=== PATIENT | male | born 1990 | race Caucasian/White ===

== ENCOUNTER 2021-03-26 20:17 | Emergency (ER) | payer OTHER ==
[2021-03-26] MEDS ORDERED: Sodium Chloride 0.9% 1,000 ML IV ONE ×2 (21:16→21:17)
--- NOTE | 2021-03-26 22:00 | EDM.PDOC ---
ED HPI GENERAL MEDICAL PROBLEM - General Chief Complaint: General Stated Complaint: POSSIBLE HEAT EX. 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 and no AC, temp is 10 degrees above ambient temp even with windows open has been trying to drink fluids, says he has not been able to keep up was weak and sluggish last night, felt the same this AM unable to eat or drink at [employer] [facility], denies nausea however did feel quite a bit better after 1/2 liter NS, said he could eat or drink some here in ED and would eat and drink more at home here with sig other had 2 beers 2d ago Bilateral Leg Pain Score (Numeric/FACES): 6 - Related Data Allergies Allergy/AdvReac Type Severity Reaction Status Date / Time No Known Allergies Allergy Verified 03/26/21 20:38 Past Medical History HEENT History: Reports: None Cardiovascular History: Reports: None Respiratory History: Reports: None Gastrointestinal History: Reports: None Genitourinary History: Reports: None Musculoskeletal History: Reports: None Neurological History: Reports: None Psychiatric History: Reports: None Endocrine/Metabolic History: Reports: None Hematologic History: Reports: None Immunologic History: Reports: None Oncologic (Cancer) History: Reports: None Dermatologic History: Reports: None - Infectious Disease History Infectious Disease History: Reports: None - Past Surgical History Head Surgeries/Procedures: Reports: None HEENT Surgical History: Reports: None Cardiovascular Surgical History: Reports: None Respiratory Surgical History: Reports: None Male Surgical History: Reports: None Endocrine Surgical History: Reports: None Neurological Surgical History: Reports: None Musculoskeletal Surgical History: Reports: None Dermatological Surgical History: Reports: None Social & Family History - Family History Family Medical History: No Pertinent Family History - Tobacco Use Tobacco Use Status *Q: Never Tobacco User - Caffeine Use Caffeine Use: Reports: Coffee, Energy Drinks, Soda - Recreational Drug Use Recreational Drug Use: No ED ROS GENERAL - Review of Systems Review Of Systems: See Below Constitutional: Reports: No Symptoms HEENT: Reports: No Symptoms Respiratory: Reports: No Symptoms Cardiovascular: Reports: No Symptoms Endocrine: Reports: No Symptoms GI/Abdominal: Reports: No Symptoms : Reports: No Symptoms Musculoskeletal: Reports: No Symptoms Skin: Reports: No Symptoms Neurological: Reports: No Symptoms Psychiatric: Reports: No Symptoms Hematologic/Lymphatic: Reports: No Symptoms Immunologic: Reports: No Symptoms ED EXAM, GENERAL - Physical Exam Exam: See Below Exam Limited By: No Limitations General Appearance: Alert, WD/WN, No Apparent Distress, Other (muscular, alert, pleasant, NAD, normal speech, good eye contact) Ears: Hearing Grossly Normal Throat/Mouth: Normal Inspection, Normal Voice, No Airway Compromise Head: Atraumatic, Normocephalic Neck: Normal Inspection, Supple. No: Lymphadenopathy (R), Lymphadenopathy (L) Respiratory/Chest: No Respiratory Distress, Lungs Clear Cardiovascular: Regular Rate, Rhythm, No Edema GI/Abdominal: Soft, Non-Tender, No Distention Back Exam: Normal Inspection. No: CVA Tenderness (L) Extremities: Normal Inspection, Non-Tender, No Pedal Edema Neurological: Alert, Oriented, CN II-XII Intact, Normal Cognition, No Motor /Sensory Deficits Psychiatric: Normal Affect, Normal Mood Skin Exam: Warm, Dry, Intact, Normal Color, No Rash, Other (mild dec'd turgor UEs, no tenting) Lymphatic: No Adenopathy Course - Vital Signs Last Recorded V/S: Last Vital Signs Temp 36.6 C 03/26/21 20:28 Pulse 72 03/26/21 20:28 Resp 18 03/26/21 20:28 BP 148/74 H 03/26/21 20:28 Pulse Ox 95 03/26/21 20:28 - Orders/Labs/Meds Orders: Active Orders 24 hr Category Date Time Status Sodium Chloride 0.9% [Normal Saline] 1,000 ml Med 03/26/21 21:16 Ordered IV .BOLUS Sodium Chloride 0.9% [Normal Saline] 1,000 ml Med 03/26/21 21:17 Ordered IV .BOLUS Medication Orders Sodium Chloride (Normal Saline) 1,000 mls @ 999 mls/hr IV .BOLUS ONE Stop: 03/26/21 22:16 Last Admin: 03/26/21 21:22 Dose: 999 mls/hr Documented by: ADRIANNE Sodium Chloride (Normal Saline) 1,000 mls @ 999 mls/hr IV .BOLUS ONE Stop: 07/22/21 22:17 Labs: Laboratory Tests 03/26/21 03/26/21 Range/Units 21:20 21:20 WBC 6.0 (3.2-10.1) x10-3/uL RBC 5.47 (3.90-5.90) x10(6)uL Hgb 16.7 (12.9-17.7) g/dL Hct 48.7 (38.3-50.1) % MCV 89.0 (80.8-98.7) fL MCH 30.5 (27.0-33.3) pg MCHC 34.3 (28.7-35.3) g/dL RDW 12.6 (12.4-15.0) % Plt Count 226 (117-477) x10(3)uL MPV 8.6 (6.7-11.0) fL Neut % (Auto) 84.0 H (40.3-71.8) % Lymph % (Auto) 8.3 L (15.8-45.3) % [place] % (Auto) 6.9 (5.5-15.2) % Eos % (Auto) 0.5 (0.1-6.8) % Baso % (Auto) 0.3 (0.3-3.8) % Neut # (Auto) 5.0 (1.7-6.9) x10-3/uL Lymph # (Auto) 0.5 (0.5-4.5) x10-3/uL [place] # (Auto) 0.4 (0.0-1.2) x10-3/uL Eos # (Auto) 0.0 (0.0-0.6) x10-3/uL Baso # (Auto) 0.0 (0.0-0.3) x10-3/uL Sodium 143 (135-145) mmol/L Potassium 3.8 (3.5-5.3) mmol/L Chloride 104 (100-110) mmol/L Carbon Dioxide 23 (21-32) mmol/L BUN 17 (7-18) mg/dL Creatinine 1.2 (0.70-1.30) mg/dL Est Cr Clr Drug Dosing 99.88 mL/min Estimated GFR (MDRD) > 60 (>60) BUN/Creatinine Ratio 14.2 (9-20) Glucose 118 H (80-116) mg/dL Calcium 8.1 L (8.6-10.2) mg/dL Total Bilirubin 0.7 (0.1-1.3) mg/dL AST 40 H (5-25) IU/L ALT 83 H (12-36) U/L Alkaline Phosphatase 91 (56-112) IU/L Total Protein 7.5 (6.0-8.0) g/dL Albumin 4.1 (3.5-5.2) g/dL Globulin 3.4 g/dL Albumin/Globulin Ratio 1.2 Meds: Medications Generic Name Dose Route Start Last Admin Trade Name Sheridan PRN Reason Stop Dose Admin Sodium Chloride 1,000 mls @ 999 mls/hr 03/26/21 21:16 03/26/21 21:22 Normal Saline IV 03/26/21 22:16 999 mls/hr .BOLUS ONE Administration Sodium Chloride 1,000 mls @ 999 mls/hr 03/26/21 21:17 Normal Saline IV 03/26/21 22:17 .BOLUS ONE - Re-Assessments/Exams Free Text/Narrative Re-Assessment/Exam: 03/26/21 22:03 doing well here, as he is now able to take fluids and food orally, will d/c after one liter NS he has already taken off work tomorrow, needs a note Departure - Departure Time of Disposition: 21:55 Disposition: Home, Self-Care 01 Condition: Good Clinical Impression: Heat exhaustion, Dehydration - Discharge Information *PRESCRIPTION DRUG MONITORING PROGRAM REVIEWED*: Not Applicable *COPY OF PRESCRIPTION DRUG MONITORING REPORT IN PATIENT ARASELI: Not Applicable Instructions: Heat Exhaustion, Rehydration, Adult Referrals: Syed Holman MD [Primary Care Provider] - Forms: ED Department Discharge, ED Return to Work/School Form Additional Instructions: Increase fluids. Limit caffeine as caffeine is a diuretic and causes dehydration. Rest tomorrow. You have mild increase in your liver tests, which you should discuss with your physician. See your physician next week for further recommendations. Return to Emergency Department if you are feeling worse. Sepsis Event Note (ED) - Evaluation Sepsis Screening Result: No Definite Risk - Focused Exam Vital Signs: Vital Signs Temp Pulse Resp BP Pulse Ox 03/26/21 20:28 36.6 C 72 18 148/74 H 95 - My Orders Last 24 Hours: My Active Orders 03/26/21 21:16 Sodium Chloride 0.9% [Normal Saline] 1,000 ml IV .BOLUS 03/26/21 21:17 Sodium Chloride 0.9% [Normal Saline] 1,000 ml IV .BOLUS - Assessment/Plan Last 24 Hours: My Active Orders 03/26/21 21:16 Sodium Chloride 0.9% [Normal Saline] 1,000 ml IV .BOLUS 03/26/21 21:17 Sodium Chloride 0.9% [Normal Saline] 1,000 ml IV .BOLUS
== END 2021-03-26 22:25 | disposition home or self-care (01) ==
LOC: FB.ED 20:17
DX: T67.5XXA Heat exhaustion, unspecified, initial encounter (principal); E86.0 Dehydration
CPT/HCPCS: 36415; 80053; 85025; 99284; J7030